=== PATIENT | female | born 1975 | race African-American/Black ===

== ENCOUNTER 2019-05-04 22:30 | Emergency (ER) | payer OTHER ==
[2019-05-04 22:35] VITALS: BP 112/64; PULSE 78; TEMP 98.5; BMI 29.0
--- NOTE | 2019-05-05 00:04 | PDOC ---
History of Present Illness - General Chief Complaint: Rash Stated Complaint: UNDERARM PAIN Time Seen by Provider: 05/04/19 22:45 History Source: Patient Exam Limitations: No Limitations - History of Present Illness Initial Comments: 05/04/19 23:51 Patient is a 43 year old female with no pmhx c/o irritation to the b/l axilla x 2 weeks, left greater than right. Patient states that she has been using unnatural deodorant for about a year and has never had this problem, however, 2 weeks ago started to develop a little itch and a rash in the left axilla which has progressively worsened. She states axillas are mildly itchy left greater than right, and now she has swelling and a dark hyperpigmentation patch in the left axilla. States the skin is tight in the left axilla and she is starting to have some pain in the left axilla. Denies fever, chills. PMD: Dr. Rangel PMHX: neg PSOCHX: Occasional EtOH, no cigarette, no drugs ALL: NKDA GENERAL/CONSTITUTIONAL: [No fever or chills. No weakness. No weight change.] HEAD, EYES, EARS, NOSE AND THROAT: [No change in vision. No ear pain or discharge. No sore throat.] CARDIOVASCULAR: [No chest pain or shortness of breath.] RESPIRATORY: [No cough, wheezing, or hemoptysis.] GASTROINTESTINAL: [No nausea, vomiting, diarrhea or constipation. No rectal bleeding.] GENITOURINARY: [No dysuria, frequency, or change in urination.] MUSCULOSKELETAL: [No joint or muscle swelling or pain. No neck or back pain.] SKIN AND BREASTS: [(+) rash or easy bruising.] NEUROLOGIC: [No headache, vertigo, loss of consciousness, or loss of sensation.] PSYCHIATRIC: [No depression or anxiety.] ENDOCRINE: [No increased thirst. No abnormal weight change.] HEMATOLOGIC/LYMPHATIC: [No anemia, easy bleeding, or history of blood clots.] ALLERGIC/IMMUNOLOGIC: [No hives or skin allergy. No latex allergy.] GENERAL: [The patient is awake, alert, and fully oriented, in no acute distress. ] HEAD: [Normal with no signs of trauma.] EYES: [Pupils equal, round and reactive to light, extraocular movements intact, sclera anicteric, conjunctiva clear.] ENT: [Ears normal, nares patent, oropharynx clear without exudates. Moist mucous membranes.] NECK: [Normal range of motion, supple without lymphadenopathy, JVD, or masses.] LUNGS: [Breath sounds equal, clear to auscultation bilaterally. No wheezes, and no crackles.] HEART: [Regular rate and rhythm, normal S1 and S2 without murmur, rub.] ABDOMEN: [Soft, nontender, normoactive bowel sounds. No guarding, no rebound. No masses.] EXTREMITIES: [Normal range of motion, no edema. No clubbing or cyanosis. No cords, erythema, or tenderness.] NEUROLOGICAL: [Cranial nerves II through XII grossly intact. Normal speech, normal gait.] PSYCH: [Normal mood, normal affect.] SKIN: [Warm, Dry, normal turgor, (+) hyperpigmented rash the upper aspect of the left axilla 9x4 cm, mildly warm, tenderness to palp, none noted to the right.] Past History - Past Medical History Allergies/Adverse Reactions: Allergies Allergy/AdvReac Type Severity Reaction Status Date / Time No Known Allergies Allergy Verified 05/04/19 22:32 Home Medications: Ambulatory Orders Bacitracin Zinc/Polymyxin B [Double Antibiotic Ointment] 28.4 gm TP BID #30 gm 05/05/19 Hydrocortisone 1% Cream [Hytone 1% Cream -] 1 applic TP BID #1 tube 05/05/19 Oxiconazole Nitrate [Oxistat] 30 gm TP BID #1 cream..g. 05/05/19 COPD: No - Psycho Social/Smoking Cessation Hx Smoking History: Never smoked Hx Alcohol Use: No Drug/Substance Use Hx: No *Physical Exam - Vital Signs Last Vital Signs Temp Pulse Resp BP Pulse Ox 98.5 F 78 20 112/64 100 05/04/19 22:32 05/04/19 22:32 05/04/19 22:32 05/04/19 22:32 05/04/19 22:32 Medical Decision Making - Medical Decision Making 05/04/19 23:51 Patient is a 43 year old female with no pmhx c/o irritation to the b/l axilla x 2 weeks, left greater than right. Patient states that she has been using unnatural deodorant for about a year and has never had this problem, however, 2 weeks ago started to develop a little itch and a rash in the left axilla which has progressively worsened. She states axillas are mildly itchy left greater than right, and now she has swelling and a dark hyperpigmentation patch in the left axilla. States the skin is tight in the left axilla and she is starting to have some pain in the left axilla. Denies fever, chills. Symptoms comes most consistent with fungal rash left axilla versus allergic rash. Will give topical antifungal and topical anti-bacterial cream/ointment Patient instructed on twice daily cleaning and dressing with the ointment. Instructed to follow-up with dermatology if not improved in about a week. I discussed the physical exam findings, ancillary test results and final diagnoses with the patient. I answered all of the patient's questions. The patient was satisfied with the care received and felt comfortable with the discharge plan and treatment plan. The Patient agrees to follow up with the primary care physician within 24-72 hours. Discharge - Discharge Information Problems reviewed: Yes Clinical Impression/Diagnosis: Tinea Condition: Stable Disposition: HOME - Additional Discharge Information Prescriptions: Bacitracin Zinc/Polymyxin B [Double Antibiotic Ointment] 28.4 gm TP BID #30 gm Hydrocortisone 1% Cream [Hytone 1% Cream -] 1 applic TP BID #1 tube Oxiconazole Nitrate [Oxistat] 30 gm TP BID #1 cream..g. - Follow up/Referral Referrals: Vibha Rangel [Primary Care Provider] - - Patient Discharge Instructions Patient Printed Discharge Instructions: DI for Tinea Corporis Additional Instructions: Your Discharge Instructions: You must call primary care physician within 24 hours to arrange follow-up. Return to the Emergency Department with any new, persistent or worsening symptoms, for fever, chills, SOB, dizziness or any other concerning changes that may occur. - Post Discharge Activity
== END 2019-05-05 00:34 | disposition home or self-care (01) ==
LOC: JER 22:30
DX: B35.8 Other dermatophytoses (principal)
CPT/HCPCS: 82962; 99282-25